=== PATIENT | male | born 1975 | race Caucasian/White ===

== ENCOUNTER 2017-04-24 15:06 | Emergency (ER) | payer OTHER ==
[2017-04-24 17:37] LABS: BASOPHIL % 0.6 % (0-2)
[2017-04-24 17:39] LABS: PLATELET COUNT 105 x10^3mcL (130-400)
[2017-04-24 17:40] LABS: microscopic required? NO
[2017-04-24 17:50] LABS: CALCIUM 8.8 mg/dL (8.5-10.1); CARBON DIOXIDE 31.2 mmol/L (21-32); CHLORIDE SERUM 103 mmol/L (98-107); CREATININE SERUM 0.8 mg/dL (0.7-1.3); GFR1 > 60 mL/min; GLUCOSE SERUM 103 mg/dL (74-106); POTASSIUM SERUM 3.8 mmol/L (3.5-5.1); SODIUM SERUM 138 mmol/L (136-145)
[2017-04-24 17:54] LABS: ALBUMIN 3.6 g/dL (3.4-5.0); ALKALINE PHOSPHATASE 91 U/L (46-116); ALT/SGPT 55 U/L (16-63); AST/SGOT 34 U/L (15-37); BILIRUBIN TOTAL 1.38 mg/dL (0.20-1.00); TOTAL PROTEIN, SERUM 7.7 g/dL (6.4-8.2)
[2017-04-24 17:54] LABS: urine erythrocyte NEGATIVE (NEGATIVE)
[2017-04-24 18:03] LABS: AMPHETAMINE QUAL UR NONE DETECTED (NEG <=1000)
[2017-04-24 20:11] VITALS: BP 102/57
== END 2017-04-24 20:11 | disposition short-term general hospital (02) ==
LOC: ED 15:06
PROVIDERS: Emergency Medicine
DX: G45.9 Transient cerebral ischemic attack, unspecified (principal); I10 Essential (primary) hypertension
CPT/HCPCS: 36415